=== PATIENT | male | born 1950 | race Caucasian/White ===

== ENCOUNTER 2017-12-19 06:54 | Outpatient (CLI) | END 2017-12-19 06:55 | disposition short-term general hospital (02) | LOC: AMBL 06:54 | PROVIDERS: ATTEND Family Medicine | DX: R55 Syncope and collapse (principal); E11.9 Type 2 diabetes mellitus without complications; I10 Essential (primary) hypertension ==

== ENCOUNTER 2018-07-30 00:06 | Outpatient (CLI) | payer OTHER | END 2018-07-30 00:07 | disposition home or self-care (01) | LOC: AMBL 00:06 | PROVIDERS: ATTEND Internal Medicine Geriatric Medicine | DX: R07.9 Chest pain, unspecified (principal); I10 Essential (primary) hypertension; Z79.899 Other long term (current) drug therapy ==

== ENCOUNTER 2018-10-09 07:40 | Outpatient (RCR) ==
[2018-09-13 07:33] VITALS: BMI 28.5
[2018-11-06 09:54] VITALS: BP 124/56
== END 2018-11-06 23:59 ==
LOC: CAR.REHAB 07:40
PROVIDERS: ATTEND Nurse Practitioner Acute Care
DX: I25.119 Atherosclerotic heart disease of native coronary artery with unspecified angina pectoris (principal)
CPT/HCPCS: 93798

== ENCOUNTER 2018-11-08 06:58 | Outpatient (RCR) ==
[2018-09-13 07:33] VITALS: BMI 28.5
[2018-11-10 09:54] VITALS: BP 118/60
== END 2018-11-11 13:30 | disposition home or self-care (01) ==
LOC: CAR.REHAB 06:58
PROVIDERS: ATTEND Nurse Practitioner Acute Care
DX: I25.119 Atherosclerotic heart disease of native coronary artery with unspecified angina pectoris (principal)
CPT/HCPCS: 93798